=== PATIENT | male | born 2000 | race Hispanic/Latino ===

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

== ENCOUNTER 2022-10-22 00:25 | Emergency (ER) | payer MEDICAID ==
[~2022-10-22] VITALS: Ht 177.8 cm; Wt 91.6 kg
[2022-10-22] MEDS ORDERED: AZITHROMYCIN 250 MG TABLET PO STA (01:59)
[2022-10-22] MEDS ORDERED: GUAIFENESIN-DM 200/20 MG 10 ML PO PRN (02:00)
[2022-10-22] MEDS ORDERED: AZIT250T9 PO (02:52)
[2022-10-22] MEDS ORDERED: [UNRECOGNIZED DRUG - CODE] PO (02:52)
[2022-10-22 03:25] VITALS: BP 121/87
== END 2022-10-22 03:27 | disposition home or self-care (01) ==
LOC: EDH 00:25
DX: J40 Bronchitis, not specified as acute or chronic (principal); K21.9 Gastro-esophageal reflux disease without esophagitis; Z88.2 Allergy status to sulfonamides; Z88.0 Allergy status to penicillin; Z88.8 Allergy status to other drugs, medicaments and biological substances; Z90.89 Acquired absence of other organs; Z90.49 Acquired absence of other specified parts of digestive tract